=== PATIENT | male | born 1975 | race African-American/Black ===

== ENCOUNTER 2017-08-30 22:04 | Emergency (ER) | payer OTHER ==
[~2017-08-30] VITALS: Ht 183.5 cm; Wt 104.3 kg
[~2017-08-30 22:04] MED LIST: ANUSOL HC1 SUPP RECTAL; CIPRO500 MG PO; CIPROFLOXACIN500 M2 ORAL; COLACE100 MG ORAL; DILANTIN100 MG ORAL; DILANTIN30 MG ORAL; MIRALAX17 G2 ORAL; NITROFURANTOIN100 M2 ORAL; NORCO 5-325 TA1 EACH ORAL
[2017-08-30 22:10] VITALS: BP 120/79
[2017-08-30] MEDS ORDERED: NS 1000ml 3,100 ML IVLG ONE (22:45)
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
[2017-08-30 23:49] LABS: ANION GAP 7 mmol/L (5-15); CARBON DIOXIDE 32 MMOL/L (21-32); CHLORIDE 99 MMOL/L (98-107); CREATININE 0.3 MG/DL (0.55-1.30); GLOMERULAR FILTRATION RATE > 60 mL/min (>60); SODIUM 138 MMOL/L (136-145)
[2017-08-30 23:52] LABS: INR 1.1 (0.9-1.1); PROTHROMBIN TIME 11.9 SEC (9.30-11.50)
[2017-08-30 23:53] LABS: MEAN CORPUSCULAR HEMOGLOBIN 30.4 PG (27.0-31.0); MEAN CORPUSCULAR HGB CONC 34.1 G/DL (32.0-36.0); MEAN CORPUSCULAR VOLUME 89 FL (80-99); MEAN PLATELET VOLUME 6.1 FL (6.5-10.1); PLATELET COUNT 347 K/UL (150-450); RED BLOOD COUNT 4.67 M/UL (4.70-6.10); RED CELL DISTRIBUTION WIDTH 11.6 % (11.6-14.8)
[2017-08-31] MEDS ORDERED: Cefepime HCl 1 GM in D5W 55 ML IVPB ONE ×2
[2017-08-31 00:02] LABS: ALANINE AMINOTRANSFERASE 12 U/L (12-78); ALBUMIN/GLOBULIN RATIO 0.6 (1.0-2.7); ASPARTATE AMINO TRANSFERASE 32 U/L (15-37); CKMB < 0.5 NG/ML (0.0-3.6); TOTAL PROTEIN 8.8 G/DL (6.4-8.2)
[2017-08-31 00:03] VITALS: BP 122/78
[2017-08-31] MEDS ORDERED: Cefepime 1gm vial ONE (01:31)
[2017-08-31 01:43] LABS: APPEARANCE,URINE CLOUDY; KETONES,URINE NEGATIVE (NEGATIVE); LEUKOCYTE ESTERASE ,URINE 3+ (NEGATIVE); NITRITE,URINE POSITIVE (NEGATIVE); PH,URINE 6.5 (4.5-8.0); PROTEIN,URINE 2+ (NEGATIVE); UROBILINOGEN,URINE NORMAL MG/DL (0.0-1.0)
[2017-08-31 01:46] LABS: BAND NEUTROPHILS % (MANUAL) 28 % (0-8); BASOPHILS % (MANUAL) 0 % (0-2); EOSINOPHILS % (MANUAL) 0 % (0-3); LYMPHOCYTES % (MANUAL) 7 % (20-45); NEUTROPHILS % (MANUAL) 62 % (45-75); PLATELET ESTIMATE ADEQUATE; PLATELET MORPHOLOGY NORMAL; TOTAL CELLS COUNTED 100
[2017-08-31 01:52] LABS: BACTERIA,URINE MANY /HPF; SQUAMOUS EPITHELIAL CELL,UR FEW /LPF (NONE/OCC); WBC,URINE TNTC /HPF (0 - 0)
[2017-08-31 03:00] VITALS: BP 115/78
[2017-08-31 03:16] VITALS: BP 115/78
--- NOTE | 2017-08-31 10:12 | Diagnostic Imaging Report ---
Indication: Chest pain Technique: Continuous helical transaxial imaging of the chest was obtained from the thoracic inlet to the upper abdomen during rapid intravenous contrast administration. Arterial phase of enhancement obtained. Coronal 2-D reformats were also obtained and maximum intensity projection images in multiple planes. Study obtained in a Siemens sensation [address] Automatic Exposure Control was utilized. Total Dose length Product (DLP): 1431.[address] Dose Index Volume (CTDIvol): 34.36 mGy Comparison: None Findings: The pulmonary artery is well opacified and shows no filling defects. There is no aortic dissection or aneurysm identified within the chest. There is atelectasis of the left lower lobe with considerable volume loss with shifting of the mediastinum and heart toward the left. Hyperinflation of the right lung consistent with COPD and emphysema. Patchy infiltrate at the right lung base noted. Breathing motion limits evaluation. Suggestion of hypodensities within the kidneys may be cystic though not evaluated well on this examination. IMPRESSION: No evidence of acute pulmonary embolus, aortic dissection or aneurysm. Left lower lobe atelectasis and volume loss. Superimposed pneumonia not excluded. Considerations include postobstructive atelectasis due to mucous plugging and/or other endobronchial process versus other possibilities such as chronic aspiration. [facility] has communicated the preliminary results to the Emergency Department. Their findings are largely concordant with this report.. Other findings as above The CT scanner at [facility] is accredited by the [employer] and the scans are performed using dose optimization techniques as appropriate to a performed exam including Automatic Exposure control.
--- NOTE | 2017-08-31 11:41 | Diagnostic Imaging Report ---
Indication: Dyspnea Comparison: None A single view chest radiograph was obtained. Findings: There is a lucency projected over the upper chest just left of the trachea which is secondary to overinflation of the right lung and leftward shifting of the anterior junction line. Exam is limited by rotation. There is density with volume loss at the left lung base silhouetting the left hemidiaphragm. Heart size is normal. The bones are osteopenic. IMPRESSION: Left basilar atelectasis and volume loss.
--- NOTE | 2017-08-31 12:50 | Cardiology Report ---
APPROVED REPORT EKG Measurement Heart [id number] Normal sinus rhythm Possible Left atrial enlargement Nonspecific ST and T wave abnormality Abnormal ECG
== END 2017-08-31 03:17 | disposition short-term general hospital (02) ==
LOC: EDBD 22:04 → EMR 22:10 → EDBEDREQ 08-31 01:38 → EMR 08-31 03:17
DX: A41.9 Sepsis, unspecified organism (principal); J18.9 Pneumonia, unspecified organism; N39.0 Urinary tract infection, site not specified; R80.9 Proteinuria, unspecified; I10 Essential (primary) hypertension; G82.50 Quadriplegia, unspecified
CPT/HCPCS: 36415; 51701; 71010; 71275; 80053; 81003; 82550; 82553; 83605; 84484; 85007; 85025; 85610; 85730; 86710; 87040; 87086; 87181; 93005; 96361; 96365; 96366; 99291; J0692; J1956; Q9967

== ENCOUNTER 2018-02-13 22:16 | Emergency (ER) | payer OTHER ==
[~2018-02-13] VITALS: Ht 182.9 cm; Wt 79.4 kg
[2018-02-13 22:48] VITALS: BP 131/68
[2018-02-13 23:30] LABS: BILIRUBIN, URINE NEGATIVE (NEGATIVE); GLUCOSE, URINE (UA) NEGATIVE (NEGATIVE); KETONES,URINE NEGATIVE (NEGATIVE); LEUKOCYTE ESTERASE ,URINE 3+ (NEGATIVE); NITRITE,URINE POSITIVE (NEGATIVE); PH,URINE 7 (4.5-8.0); PROTEIN,URINE 2+ (NEGATIVE); UROBILINOGEN,URINE 1 MG/DL (0.0-1.0)
[2018-02-13 23:39] LABS: APPEARANCE,URINE CLOUDY; COLOR,URINE YELLOW
[2018-02-13 23:58] LABS: BASOPHILS % (AUTO) 1.2 % (0.0-2.0); EOSINOPHILS % (AUTO) 4.5 % (0.0-3.0); HEMATOCRIT 41.1 % (42.0-52.0); HEMOGLOBIN 14.5 G/DL (14.2-18.0); LYMPHOCYTES % (AUTO) 19.2 % (20.0-45.0); MEAN CORPUSCULAR VOLUME 88 FL (80-99); MONOCYTES % (AUTO) 7.9 % (1.0-10.0); NEUTROPHILS % (AUTO) 67.3 % (45.0-75.0); PLATELET COUNT 429 K/UL (150-450); RED BLOOD COUNT 4.66 M/UL (4.70-6.10); RED CELL DISTRIBUTION WIDTH 11.1 % (11.6-14.8); WHITE BLOOD COUNT 10.6 K/UL (4.8-10.8)
[2018-02-14] MEDS ORDERED: Cefepime HCl 1 GM in D5W 55 ML IVPB ONE ×2
[2018-02-14 00:09] LABS: ANION GAP 8 mmol/L (5-15); BLOOD UREA NITROGEN 10 mg/dL (7-18); CALCIUM 9.1 MG/DL (8.5-10.1); CARBON DIOXIDE 29 MMOL/L (21-32); CHLORIDE 101 MMOL/L (98-107); CREATININE 0.4 MG/DL (0.55-1.30); POTASSIUM 3.7 MMOL/L (3.5-5.1); SODIUM 138 MMOL/L (136-145)
[2018-02-14 00:14] LABS: ALANINE AMINOTRANSFERASE 14 U/L (12-78); ALBUMIN 3.4 G/DL (3.4-5.0); ALBUMIN/GLOBULIN RATIO 0.6 (1.0-2.7); ALKALINE PHOSPHATASE 102 U/L (46-116); ASPARTATE AMINO TRANSFERASE 12 U/L (15-37); BILIRUBIN,TOTAL 0.2 MG/DL (0.2-1.0)
[2018-02-14 02:08] VITALS: BP 121/69
[2018-02-14 02:10] VITALS: BP 121/69
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
== END 2018-02-14 02:11 | disposition short-term general hospital (02) ==
LOC: EDBD 22:16 → EMR 22:50
DX: N39.0 Urinary tract infection, site not specified (principal); I10 Essential (primary) hypertension; G82.50 Quadriplegia, unspecified; Z87.11 Personal history of peptic ulcer disease
CPT/HCPCS: 36415; 80053; 81003; 83605; 85025; 87040; 87086; 87181; 96361; 96365; 99285; J0692